=== PATIENT | female | born 1995 | race Caucasian/White ===

== ENCOUNTER 2017-01-10 23:08 | Emergency (ER) | payer SELFPAY ==
[~2017-01-10] VITALS: Ht 149.9 cm; Wt 64.0 kg
[2017-01-11 00:21] LABS: HEMOGLOBIN 14.4 g/dL (11.7-16.4)
[2017-01-11 00:33] LABS: BLOOD UREA NITROGEN 10 mg/dL (7-18)
[2017-01-11 00:51] LABS: ASPARTATE AMINO TRANSFERASE 11 U/L (15-37)
[2017-01-11 03:37] VITALS: BP 109/64
== END 2017-01-11 03:39 | disposition home or self-care (01) ==
LOC: ED 01-11 03:25
DX: O20.0 Threatened abortion (principal); Z3A.01 Less than 8 weeks gestation of pregnancy
CPT/HCPCS: 36415; 76801; 80053; 81003; 84702; 85025; 86901; 99285

== ENCOUNTER 2017-04-20 19:11 | Outpatient (CLI) | payer SELFPAY ==
[2017-04-20 19:45] LABS: DAU SCREEN DISCLAIMER
[2017-04-20 20:00] VITALS: BP 101/58
== END 2017-04-20 21:20 | disposition home or self-care (01) ==
LOC: LDOP 19:11
PROVIDERS: ATTEND Obstetrics & Gynecology
DX: O26.892 Other specified pregnancy related conditions, second trimester (principal); O99.512 Diseases of the respiratory system complicating pregnancy, second trimester; R10.9 Unspecified abdominal pain; J45.909 Unspecified asthma, uncomplicated; Z3A.20 20 weeks gestation of pregnancy
CPT/HCPCS: 59025; 76805; 80307; 81001; 87086; 99211; G0463

== ENCOUNTER 2017-06-05 23:46 | Outpatient (CLI) | payer SELFPAY | END 2017-06-06 02:05 | disposition left against medical advice (07) | LOC: LDOP 23:46 | PROVIDERS: ATTEND Student in an Organized Health Care Education/Training Program | DX: Z02.9 Encounter for administrative examinations, unspecified (principal) ==